=== PATIENT | female | born 1980 | race Caucasian/White ===

== ENCOUNTER → 2017-06-23 | Outpatient (CLI) | payer BC ==
[~2017-06-23] MED LIST: LISI-461 PO; NORE1TAB50 PO; PRLSR20 PO
== END | disposition home or self-care (01) ==
LOC: C.PATHSPEC 15:57
PROVIDERS: ATTEND Obstetrics & Gynecology
DX: R93.8 Abnormal findings on diagnostic imaging of other specified body structures (principal)

== ENCOUNTER → 2017-07-07 | Day surgery (SDC) | payer BC ==
[2017-06-25 10:25] VITALS: Ht 152.4 cm; Wt 61.8 kg
--- NOTE | 2017-06-28 12:59 | HISTORY & PHYSICAL EXAMINATION ---
DATE OF ADMISSION: 07/07/2017 ADMITTING DIAGNOSES: Probable endometrial polyp. ADMISSION HISTORY: The patient is a 37-year-old 1, para 1 who was on a progesterone only pill who is admitted for diagnostic hysteroscopy with D&C for probable endometrial polyp. The patient has been followed for many years with a small dermoid cyst. At the time of her most recent yearly ultrasound, the endometrial lining appeared to be thickened. The patient is essentially amenorrheic on the progesterone only pill with episodes of spotting, so the possibility of a thickened endometrial polyp was entertained. The patient went off the progesterone only pill for 2 weeks and essentially had no withdrawal bleedings. Because of this, the patient had a SIS with endometrial biopsy. SIS in the office showed what appeared to be fundal endometrial polyp measuring approximately 1.5 x 1.5 x 0.6 cm. Given the polyp in a premenopausal woman, treatment options were discussed and the patient is admitted for the above listed procedure. PAST MEDICAL HISTORY: OBSTETRICAL: section for HELLP syndrome. FIRST GRADE TEACHER: As above. MEDICAL: Hypertension, left bundle branch block. SURGICAL: Colonoscopy, wisdom teeth extraction. ALLERGIES: AMPICILLIN. SOCIAL HISTORY: No smoking. FAMILY HISTORY: Noncontributory. REVIEW OF SYSTEMS: As per HPI. PHYSICAL EXAMINATION: GENERAL: Today shows a pleasant female in no acute distress. VITAL SIGNS: Blood pressure 118/78, height of 5 feet, weight of 136 pounds. HEENT EXAMINATION: Unremarkable. NECK: Supple. LUNGS: Clear. HEART: With a regular rhythm and rate. ABDOMEN: Soft, nontender. PELVIC: Shows normal external genitalia, vaginal wall pink and rugated. Cervical os is closed. Bimanual examination shows an anterior mobile uterus. Adnexa show no palpable masses. RECTAL: Confirmatory. EXTREMITIES: Shows no deep calf tenderness. NEUROLOGIC: Grossly intact. IMPRESSION: A 37-year-old G1, P1 with probable endometrial polyp for diagnostic hysteroscopy with dilatation and curretage. PLAN: The risks, benefits and alternatives to the surgery have been discussed. While the benefits will be evaluation of the endometrial lining and removal of any abnormal tissue, the risks are bleeding, infection, inadvertent perforation of the uterus or failure to diagnose and/or treat the problem. The patient understands that. Permit has been signed and she wishes to proceed.
--- NOTE | 2017-07-02 10:24 | PAT Medication Instructions ---
Service Date Jul 02, 2017. Current Home Medication List Lisinopril (Zestril), 10 MG PO HS Omeprazole (Prilosec), 20 MG PO DAILY PRN for GI Upset Medication Instructions For Your Scheduled Surgery - Take the following medications as scheduled the night before surgery Omeprazole (Prilosec), 20 MG PO DAILY PRN for GI Upset (if needed) - Take the following medications the morning of surgery with a sip of water: Omeprazole (Prilosec), 20 MG PO DAILY PRN for GI Upset (if needed) - SKIP the following medications the night before surgery: Lisinopril (Zestril), 10 MG PO HS If you have any questions please call us at [phone] or [phone] or [phone]
[2017-07-02 12:09] LABS: BASO % 0.4 %; BASO ABS # 0.03 K/uL (0-0.2); COMPLETE YES; EOS % 1.1 %; HEMATOCRIT 41.9 % (37-47); IG% 0.1 %; LYMPH % 30.8 %; LYMPH ABS # 2.17 K/uL (1.2-3.4); MEAN CELL VOLUME 85.7 fL (80-100); MEAN CORPUSCULAR HEMOGLOBIN 29.2 pg (25-34); MEAN CORPUSCULAR HGB CONC 34.1 g/dl (32-36); MEAN PLATELET VOLUME 9.8 fL (7.4-10.4); MONO % 9.9 %; NEUT % 57.7 %; PLATELET COUNT 266 K/uL (130-400); RED BLOOD COUNT 4.89 M/uL (4.2-5.4); WHITE BLOOD COUNT 7.04 K/uL (4.8-10.8)
[2017-07-02 12:21] LABS: CREATININE 0.78 mg/dl (0.60-1.20)
[2017-07-02 12:22] LABS: BUN/CREATININE RATIO 17.8 (10-20); CALCIUM 9.1 mg/dl (8.5-10.1); POTASSIUM 3.8 mmol/L (3.5-5.1)
[~2017-07-07] VITALS: Ht 152.4 cm; Wt 61.8 kg
[~2017-07-07] MED LIST changes: +ALBUTEROL HFA INHALER 8.5 GM INH ONE; +ATROPINE SULFATE 0.1 MG/ML 5ML SYR IV PRN; +DEXAMETHASONE SOD INJ 4 MG/ML VIAL ONE; +EpHEDrine SULFATE INJ 50 MG/ML AMP IV PRN; +FENTANYL CITRATE INJ 50 MCG/1 ML 2 ML VIAL IV PRN; +FENTANYL CITRATE INJ 50 MCG/1 ML 2 ML VIAL ONE; +IBUPROFEN 600 MG TAB PO PRN; +KETOROLAC TROMETHAMINE 30 MG/ML VIAL IV. PRN; +KETOROLAC TROMETHAMINE 30 MG/ML VIAL ONE; +LACTATED RINGER'S 1000ML 1,000 ML IV SCH; +LIDOCAINE HCL 2% 2 ML VIAL (20MG/ML) ONE; +MIDAZOLAM HCL 1 MG/ML 2ML VIAL ONE; -NORE1TAB50 PO; +ONDANSETRON INJ 2 MG/ML 2 ML VIAL IV PRN; +PROPOFOL IV EMULSION 10 MG/ML 20 ML VIAL IV ONE; +SCOPOLAMINE 1.5 MG TDSY TD ONE; +SODIUM CHLORIDE 0.9% 1000ML 1,000 ML IV SCH
--- NOTE | 2017-07-07 12:11 | History & Physical Bridge - SC ---
H&P Re-Evaluation Bridge Note: I have examined the patient, reviewed the History & Physical and in the interval since the performance of the History & Physical I have noted the following changes of clinical significance: No changes noted
--- NOTE | 2017-07-07 12:46 | [facility] Post Operative Brief Note ---
Immediate Operative Summary Operative Date Jul 07, 2017. Pre-Operative Diagnosis 1) Endometrial Polyp Post-Operative Diagnosis Same Procedure(s) Performed 1) Dx Hysteroscopy, 2) Polypectomy, MyoSure technique Surgeon Dr. Regan Bridal Stylist Sales Consultant Surgeon(s) None Estimated Blood Loss Minimal Findings Hysteroscopic evaluation showed 2 polyps, polyps removed, fluid deficit 130 cc Fluids (cc crystalloids) 300 Specimens A. Endometrial Curettings Drains None Anesthesia General Complication(s) None Disposition Recovery Room / PACU
--- NOTE | 2017-07-07 13:01 | OPERATIVE REPORT ---
DATE OF OPERATION: 07/07/2017 PREOPERATIVE DIAGNOSIS: Endometrial polyp. POSTOPERATIVE DIAGNOSIS: Same. PROCEDURE PERFORMED: 1. Diagnostic hysteroscopy. 2. Excision of endometrial polyps, MyoSure technique. SURGEON: Dr. Regan. ANESTHESIA: General. FINDINGS: Hysteroscopic examination of the endometrium showed 3 separate endometrial polyps. These were excised using the MyoSure technique then sent for pathological evaluation. Post-fluid deficit 130 mL. PROCEDURE IN DETAIL: The patient was taken to the operating room and after general anesthesia, was placed in dorsolithotomy position and draped and prepped in the usual fashion. Bladder was drained of any residual urine. Single tooth tenaculum was used to grasp the anterior lip of the cervix. The cervical os was dilated with Salazar dilators to a Salazar #[id number]. The MyoSure operative scope was inserted into the endometrial cavity with description as above. The MyoSure instrument was inserted and under direct hysteroscopic guidance, the 3 separate polyps were excised and sent for pathological evaluation. Hemostasis present. Fluid deficit for the procedure 130 mL. Scope removed from the uterus, tenaculum freed from the cervix. The patient taken out of dorsal lithotomy to recovery room in satisfactory condition. I attest to the content of the Intraoperative Record and any orders documented therein. Any exception s are noted below.
--- NOTE | 2017-07-07 13:33 | Anesthesia Progress Nt - [facility] ---
Anesthesia Post Op Note Date & Time Jul 07, 2017 at 13:33 Vital Signs Pain Intensity: 0 Vital Signs Past 12 Hours Date Time Temp Pulse Resp B/P (MAP) Pulse Ox O2 Delivery O2 Flow Rate FiO2 07/07/17 13:28 86 13 07/07/17 13:28 82 13 99 07/07/17 13:26 117/55 07/07/17 13:23 79 12 99 07/07/17 13:23 80 12 07/07/17 13:21 117/61 07/07/17 13:18 78 12 07/07/17 13:18 77 12 99 07/07/17 13:16 115/59 07/07/17 13:13 81 12 98 07/07/17 13:13 82 12 07/07/17 13:12 79 12 07/07/17 13:12 78 12 99 07/07/17 13:11 120/62 07/07/17 13:07 79 12 07/07/17 13:07 79 12 98 07/07/17 13:06 120/59 07/07/17 13:02 80 11 07/07/17 13:02 78 11 98 07/07/17 13:01 120/53 07/07/17 12:57 79 9 07/07/17 12:57 77 9 97 07/07/17 12:56 78 8 113/55 97 07/07/17 12:56 77 8 07/07/17 12:52 123/63 07/07/17 12:51 67 92 07/07/17 12:51 67 07/07/17 12:05 37.4 101 16 139/70 (93) 96 Room Air Notes Mental Status: alert / awake / arousable, participated in evaluation Pt Amnestic to Procedure: Yes Nausea / Vomiting: adequately controlled Pain: adequately controlled Airway Patency, RR, SpO2: stable & adequate BP & HR: stable & adequate Hydration State: stable & adequate Anesthetic Complications: no major complications apparent
[2017-07-07 13:55] VITALS: TEMP 36.5
--- NOTE | 2017-07-07 14:09 | Discharge Instructions-SurgCtr ---
Discharge Instructions Date of Service Jul 07, 2017. Visit Reason for Visit: Endometrial Polyp Discharge Discharge Diagnosis / Problem: same Discharge Goals Goal(s): Therapeutic intervention Activity Recommendations Activity Limitations: as noted below Anesthesia . Post Anesthesia Instructions: If you have had General Anesthesia or IV Sedation: * Do not drive today. * Resume driving when surgeon permits. * Do not make important decisions or sign legal documents today. * Call surgeon for: 1. Temperature elevations greater than 101 degrees F. 2. Uncontrollable pain. 3. Excessive bleeding. 4. Persistent nausea and vomiting. 5. Medication intolerance (nausea, vomiting or rash). * For nausea and vomiting use only clear liquids such as: tea, soda, bouillon until nausea subsides, then gradually increase diet as tolerated. * If you have any concerns or questions, call your surgeon's office. If physician is unavailable and it is an emergency, call 911 or go to the nearest emergency room. . Instructions / Follow-Up Instructions / Follow-Up ACTIVITY RECOMMENDATIONS: * Avoid tampons, douching, hot tubs, pools, and intercourse until bleeding has stopped. * May shower as usual. * No strenuous activity for 24-48 hours. After 24-48 hours, you may do anything you feel like doing (driving and sports are okay). SPECIAL CARE INSTRUCTIONS: Special Diet: * Mild nausea may occur in the immediate post-operative period. * Take clear liquids such as tea, cola or bouillon until all nausea has subsided; you may then resume your normal diet. Special Care: * Light bleeding and vaginal spotting can last from a few days to 3-4 weeks. Call your doctor if bleeding becomes heavier than the heaviest part of your period. * Check your temperature twice a day for one week. If it goes above 100.4 degrees Fahrenheit (38.0 Celsius), notify your doctor. * Call your doctor's office for an appointment for 6 weeks after your surgery. FOLLOW-UP VISIT: Call your doctor's office for an appointment for 6 weeks after your surgery. Diet Recommendations Home Diet: resume previous diet Procedures Procedures Performed: 1) Dx Hysteroscopy, 2) Polypectomy, MyoSure technique Pending Studies Studies pending at discharge: yes List of pending studies: Pathology report Medical Emergencies . Who to Call and When: Medical Emergencies: If at any time you feel your situation is an emergency, please call 911 immediately. . Non-Emergent Contact Non-Emergency issues call your: Rehabilitation Assistant Call Non-Emergent contact if: you have a fever, temperature is above 100.5 . . "Provider Documentation" section prepared by Bernabe Regan. .
[2017-07-07 14:28] VITALS: BP 117/70; PULSE 89; O2SAT 98
== END | disposition home or self-care (01) ==
LOC: X.SURG 11:36
PROVIDERS: ATTEND Obstetrics & Gynecology
DX: N84.0 Polyp of corpus uteri (principal); I45.10 Unspecified right bundle-branch block; I10 Essential (primary) hypertension